=== PATIENT | male | born 1960 | race African-American/Black ===

== ENCOUNTER 2020-04-02 05:06 | Emergency (ER) | payer SELFPAY ==
[~2020-04-02] VITALS: Ht 172.7 cm; Wt 100.0 kg
[~2020-04-02 05:06] MED LIST: EPINEPHRINE 0.1MG/ML (1:10,000) 10ML SYR ONE; SODIUM BICARBONATE 8.4% 1 MEQ/ML 50ML SYR IV ONE
[2020-04-02 05:12] VITALS: BP 0/0
[2020-04-02] MEDS ORDERED: CALCIUM CHLORIDE 1GM/10ML SYR IV ONE (08:00)
== END 2020-04-02 05:30 | disposition expired ==
LOC: ER 05:06
DX: U07.1 COVID-19 (principal); I46.9 Cardiac arrest, cause unspecified
CPT/HCPCS: 31500; 36556; 92950; 99285; J3490